=== PATIENT | male | born 1980 | race American Indian/Alaskan Native ===

== ENCOUNTER 2018-11-03 08:31 | Outpatient (CLI) | payer BC ==
--- NOTE | 2018-11-03 13:07 | Ultrasound Report ---
BILATERAL DIGITAL DIAGNOSTIC MAMMOGRAM WITH CAD -- 11/03/2018 BILATERAL COMPLETE BREAST ULTRASOUND INDICATION: Bilateral mild swelling and tenderness, no discrete palpable mass TECHNIQUE: Digital bilateral mammographic imaging was performed. Complete ultrasound of all four (4) quadrants was performed. This examination was interpreted with the benefit of Computer-Aided Detecti on (CAD) analysis. COMPARISON: Local prior studies are being requested FINDINGS: Breast Density: The breasts are almost entirely fatty. There is no evidence of dominant mass, suspicious calcifications or architectural distortion in eithe r breast. Bilateral mild gynecomastia is noted. No discrete masses are seen. Bilateral deodarant art ifact is seen. Ultrasound Findings: Complete sonographic evlauation of all 4 quadrants and retroareolar region was p erformed. No discrete masses are noted. Mild bilateral gynecomastia is seen, slightly greater on th e right. IMPRESSION: Bilateral gynecomastia. Clinical correlation is suggested. BI-RADS 2, benign A "normal" or negative report should not discourage follow up or biopsy of a clinically significant f inding. A written summary of these findings will be mailed to the patient. The patient will be entered into a mammography reporting system which will generate a reminder letter for the patient's next appointmen t at the appropriate interval. According to the [employer], yearly mammograms are recommended starting at age 40 and continuing as long as a woman is in good health. Breast MRI is recommended for women with an alida roximately 20-25% or greater lifetime risk of breast cancer, including women with a strong family his tory of breast or ovarian cancer and women who have been treated for Hodgkin's disease. Signer Name: Franki Ratliff MD Signed: 11/03/2018 1:02 PM Workstation Name: [id number]
== END 2018-11-03 08:32 | disposition home or self-care (01) ==
LOC: MAMMO 08:31
PROVIDERS: ATTEND Physician Assistant
DX: N62 Hypertrophy of breast (principal)
CPT/HCPCS: 77066